=== PATIENT | female | born 1950 | race Caucasian/White ===

== ENCOUNTER 2017-05-17 07:29 | Day surgery (SDC) | payer OTHER ==
--- NOTE | 2017-05-02 09:58 | HP ---
HISTORY AND PHYSICAL: DATE OF ADMISSION: 05/17/17 PROVIDER: Tish Jenkins MD * (DICTATED BY DIAN ROBERTS) CHIEF COMPLAINT: Left hand pain. HISTORY OF PRESENT ILLNESS: Teodora is a 66-year-old female who has been followed by Dr. Jenkins for left middle finger trigger finger and left carpal tunnel syndrome. It was discussed with the patient that she could have permanent damage as a result of the carpal tunnel syndrome and that early intervention would provide her with the best outcome and she would like to proceed with surgical intervention. PAST MEDICAL HISTORY: 1. Hypercholesterolemia. 2. Seasonal allergies. PAST SURGICAL HISTORY: 1. Appendectomy. 2. Ovarian cyst removal. 3. Lipoma excision. She reports no complications with anesthesia with those procedures. CURRENT MEDICATIONS: 1. Atorvastatin 10 mg p.o. daily. 2. Vitamin D 1000 units p.o. daily. 3. Fluticasone propionate 50 mcg intranasal puff each nostril once daily. 4. EpiPen as needed. 5. Allergy injections. ALLERGIES: SEAFOOD, LATEX and BEE STING. SOCIAL HISTORY: She is a retired teacher. She denies tobacco or alcoholic beverages. She exercises occasionally. REVIEW OF SYSTEMS: A 14-point review of systems was discussed with the patient and all systems were negative except discussed in the HPI. PHYSICAL EXAMINATION GENERAL: She is a well-developed, well-nourished pleasant female in no acute distress at rest. She is alert and oriented x3 with appropriate mood and affect. VITAL SIGNS: She is 5 feet 4 inches, 140 pounds. Blood pressure 124/71, pulse is 74. HEENT: Normocephalic, atraumatic. Her hearing and vision are grossly intact. NECK: Her trachea is midline. RESPIRATORY: Lungs clear to auscultation bilaterally. No wheezes, rales, or rhonchi. CARDIOVASCULAR: Regular rate and rhythm. No murmurs, rubs or gallops. Normal S1, S2. ABDOMEN: Soft, nondistended, nontender. Normal bowel sounds. EXTREMITIES: Left upper extremity, skin is intact without abrasions or open wounds. There is no edema, ecchymosis or gross deformities. The patient had tenderness to palpation at the A1 mingo of the third finger with palpable triggering upon flexion and extension of the third digit. The patient also has a positive Tinel's sign over the median nerve and has a positive Phalen's sign. There is no waisting of her thenar eminence at this point. Her sensation to light touch is intact. She has a normal vascular exam. IMPRESSION: Left hand carpal tunnel syndrome and left third trigger finger. PLAN/RECOMMENDATIONS: The patient is to undergo left carpal tunnel release and left third trigger finger release by Dr. Jenkins on 05/17/17. The risks, benefits and postoperative course was discussed with the patient at length and she would like to proceed. A prescription for Ultracet was sent to her pharmacy for postoperative pain. All of her questions were answered to her full satisfaction. She is understanding to call if she develops any problems or concerns. DIAN ROBERTS [id number]/[facility] #: [id number] MTDD
[~2017-05-17 07:29] MED LIST: Buffered Lidocaine 0.9% SYRIN* 5 ML/SYR SYRINGE INTRADERM ONE; Famotidine IV* 10 MG/ML 2 ML (20 mg) IV ONE; Famotidine IV* 10 MG/ML 2 ML (20 mg) ONE; Metoclopramide TAB* 10 MG ONE; Metoclopramide TAB* 10 MG PO ONE
[2017-05-17] MEDS ORDERED: Propofol* 10 MG/ML 20 ML BTL IV PUSH ONE (08:16)
[2017-05-17] MEDS ORDERED: Ketorolac INJ* 30 MG/ML 1 ML VIAL ONE (08:16)
[2017-05-17] MEDS ORDERED: fentaNYL* 50 MCG/ML 2 ML VIAL (100 MCG VIAL) ONE (08:16)
[2017-05-17] MEDS ORDERED: Ondansetron INJ* 2 MG/ML VIAL ONE (08:16)
[2017-05-17] MEDS ORDERED: Midazolam* 1 MG/ML 2 ML VIAL (2 MG) ONE (08:16)
[2017-05-17] MEDS ORDERED: Lidocaine 2% PF * 5 ML VIAL ONE (08:16)
[2017-05-17] MEDS ORDERED: Dexamethasone IV* 4 MG/ML 1 ML (4 MG) ONE (08:16)
[2017-05-17] MEDS ORDERED: Naloxone* 0.4 MG/ML 1 ML VIAL IV PRN (08:25)
[2017-05-17] MEDS ORDERED: fentaNYL* 50 MCG/ML 2 ML VIAL (100 MCG VIAL) IV PRN (08:25)
[2017-05-17] MEDS ORDERED: oxyCODONE/Acetamin 5/325 MG* TAB PO PRN (08:25)
[2017-05-17] MEDS ORDERED: Ondansetron INJ* 2 MG/ML VIAL IV PRN (08:25)
[2017-05-17] MEDS ORDERED: Lidocaine 1% INJ* 10 MG/ML 30 ML SDV ONE (08:44)
[2017-05-17 10:13] VITALS: BP 131/65
--- NOTE | 2017-05-18 00:53 | OP ---
DATE OF OPERATION: 05/17/17 - [facility] DATE OF : 52 SURGEON: Tish Jenkins MD BILINGUAL CUSTOMER SERVICE: DIAN De Anda ANESTHESIOLOGIST: Rex Garcia MD ANESTHESIA: Local MAC. PRE-OP DIAGNOSES: Left carpal tunnel syndrome and long finger trigger finger. POST-OP DIAGNOSES: Left carpal tunnel syndrome and long finger trigger finger. OPERATIVE PROCEDURE: Left carpal tunnel release and long finger trigger release. ESTIMATED BLOOD LOSS: Zero. TOURNIQUET TIME: About 15 minutes. INDICATIONS FOR PROCEDURE: Yanet is a 66-year-old female who has numbness and tingling in the median nerve distribution of her left hand as well as clicking and locking of the left middle finger. She presents for trigger finger release in the middle finger and carpal tunnel release on the left. DESCRIPTION OF PROCEDURE: The patient was brought to the operating room, was given a sedation anesthetic and a local infiltration of total of 10 cc of 1% plain lidocaine in the palm of her left hand. The skin of her left hand and forearm was prepped and draped in the usual sterile fashion. The hand and forearm were exsanguinated and the tourniquet elevated to 250 mmHg. A transverse incision was made centered over the A1 mingo of the left long finger. We dissected bluntly through the subcutaneous tissue. The digital neurovascular bundles were retracted by the surgical coordinator, Alysa Newberry. The A1 mingo was then incised longitudinally, completely releasing the flexor tendons, which were in good condition, but with some mild abrasion and mild tenosynovitis. The wound was irrigated and the skin edges were reapproximated with 4-0 nylon suture. Next, a longitudinal incision was made in the palm. In line with the ring finger, we dissected sharply through the subcutaneous tissue down to the transverse carpal ligament. The ligament was divided sharply with a knife and then more proximally with the scissors. The nerve was dissected free from the surrounding tissue and there was an area of moderate compression of the mid portion of the ligament. The wound was irrigated and the skin edges were reapproximated with 4-0 nylon suture. The wound was dressed with Xeroform, 4x4, Webril, and an Davy wrap. The patient tolerated the procedure well, was brought to the recovery room in good condition. [id number]/[facility] #: [id number] MTDD
== END 2017-05-17 10:13 | disposition home or self-care (01) ==
LOC: OREAST 07:29
PROVIDERS: ATTEND Orthopaedic Surgery
DX: G56.02 Carpal tunnel syndrome, left upper limb (principal); M65.332 Trigger finger, left middle finger; E78.00 Pure hypercholesterolemia, unspecified; J30.2 Other seasonal allergic rhinitis; F41.8 Other specified anxiety disorders; M19.90 Unspecified osteoarthritis, unspecified site
CPT/HCPCS: A9270-GY; J1100; J1885; J2250; J2405; J2704; J3010